=== PATIENT | male | born 1960 | race Caucasian/White ===

== ENCOUNTER → 2020-10-31 | Outpatient (CLI) | payer SELFPAY ==
--- NOTE | 2020-10-31 12:30 | Diagnostic Imaging Report ---
CT cardiac calcium score. Indication: Family history of coronary artery disease. There are no prior studies available for comparison. Routine imaging of the heart was performed. The total Agatston score is 55.5 (please see attached report). The images of the heart showed the heart is at the upper limits of normal in size. There are coronary artery calcifications involving the left main and left anterior descending coronary artery. There is no sign of pericardial effusion. The aorta is not abnormally dilated. There is no obvious mediastinal or hilar adenopathy. The lungs are generally clear. However there is a suggestion of a 5.6 mm nodule involving the right middle lobe (image 57 of 113). This nodule has a generally benign appearance. Even so, unless there are previous CT examinations available to demonstrate that this finding stable, then a followup CT chest exam with contrast would be recommended. The sections through the upper abdomen failed to show any sign of an acute abnormality. The bone windows are unremarkable for fracture or for a destructive lesion. Impression: 1. The total Agatston score is 55.5 (please see attached report). 2. There is no acute cardiopulmonary abnormality identified. 3. The small nodular density in the right middle lobe is most likely a benign process. Additional considerations and recommendations as above. Dictated by: Dictated on workstation # [id number]
== END ==
LOC: RAD FS 09:02
PROVIDERS: ATTEND Family Medicine
DX: E78.00 Pure hypercholesterolemia, unspecified (principal); R91.1 Solitary pulmonary nodule
CPT/HCPCS: 75571

== ENCOUNTER 2021-01-22 21:31 | Emergency (ER) | payer BC, OTHER ==
--- OUTSIDE RECORDS SUMMARY | 2021-01-22 21:35 | XMS REPORT | Encounter Summary ---
Author Author [facility] Organization [facility] Address Unknown Phone Unavailable Care Team Providers Care Director Skills Name Role Phone Oral Newton MD PCP Reason for Visit * Reason Comments Concern For Covid-19 Cough, nausea, fever body a ches x 7 days. has covid Encounter Details Care Team Description Date Type Department Mick Machuca MD [address] [place] [id number] COVID-19 (Primary Dx) 12/31/2020 Emergency [facility] [id number] [place] [address] Social History Date Tobacco Use Types Packs/Day Years Used Never Smoker Smokeless Tobacco: Never Used Comments Alcohol Use Standard Drinks/Week Not Currently 0 (1 standard drink = 0.6 o z pure alcohol) Sex Assigned at Date Recorded Not on file documented as of this encounter Last Filed Vital Signs Reading Time Taken Comments Vital Sign 120/69 12/31/2020 6:01 PM CDT Blood Pressure 64 12/31/2020 2:11 PM CDT Pulse 36.8 C (98.3 F) 12/31/2020 2:11 PM CDT Temperature 18 12/31/2020 2:11 PM CDT Respiratory Rate 96% 12/31/2020 6:03 PM CDT Oxygen Saturation - - Inhaled Oxygen Concentration 83.9 kg (185 lb) 12/31/2020 2:11 PM CDT Weight 182.9 cm (6') 12/31/2020 2:11 PM CDT Height 25.09 12/31/2020 2:11 PM CDT Body Mass Index documented in this encounter Discharge Instructions * Attachments The following attachments cannot be sent through Care Everywhere.* Coronavirus Disease 2019: Caring for Yourself and Others ([place]) documented in this encounter Medications at Time of Discharge Start Date End Date Medication Sig Dispensed Refills aspirin 81 MG chewable Chew 81 mg 0 tablet daily. 12/31/2020 benzonatate (TESSALON) Take 1 30 capsule 0 100 MG capsule capsule (100 mg total) by mouth 3 (three) times a day as needed for cough. 12/31/2020 guaiFENesin (MUCINEX) 600 Take 1 tablet 20 tablet 0 mg Ta12 12 hr tablet (600 mg total) by mouth 2 (two) times a day. hydroCHLOROthiazide Take 25 mg by 0 (HYDRODIURIL) 25 MG mouth every tablet other day. 12/08/2018 lisinopril TAKE ONE 11 (PRINIVIL,ZESTRIL) 20 MG TABLET BY tablet MOUTH TWO TIMES A DAY 12/08/2018 metoprolol succinate TAKE TWO 11 (TOPROL-XL) 25 MG 24 hr TABLETS BY tablet MOUTH TWO TIMES A DAY 12/31/2020 ondansetron (ZOFRAN ODT) Take 1 tablet 20 tablet 0 4 MG disintegrating (4 mg total) tablet by mouth every 8 (eight) hours as needed for nausea. 11/21/2020 rosuvastatin (CRESTOR) 10 Take 10 mg by 0 MG tablet mouth daily. 12/08/2018 ULORIC 80 mg Tab tablet Take 40 mg by 6 mouth daily. documented as of this encounter ED Notes * Mick Machuca MD - 12/31/2020 5:07 PM CDT 12/31/2020 [facility] History Chief Complaint Patient presents with Concern For Covid-19 Cough, nausea, fever body aches x 7 days. has covid Patient is a 60-year-old male who has had viral symptoms for the past 7 days. H is was recently diagnosed with COVID-19. He believes he may have Covid. H e has had cough along with nausea and fevers and chills. He has significant fat igue. He is not vaccinated. He denies any chest pain. Past Medical History: Diagnosis Date Gout Hyperlipidemia Hypertension Past Surgical History: Procedure Laterality Date ARTHROSCOPY, KNEE Right CARPAL TUNNEL RELEASE Bilateral carpul tunnel EYE SURGERY Left left eye REPAIR, KNEE, ACL REPAIR, ROTATOR CUFF, ARTHROSCOPIC Left 03/22/2019 Procedure: LEFT SHOULDER ARTHROSCOPY; Surgeon: Tyson Sawyer MD; Location : [facility] Main OR; Service: Orthopedics; Laterality: Left; ROTATOR CUFF REPAIR,OPEN,WITH BICEPS TENODESIS,SUBACROMIAL SPACE DECOMPRESSI ON,AND DISTAL CLAVICLE EXCISION Left 03/22/2019 Procedure: ROTATOR CUFF REPAIR,OPEN,WITH BICEPS TENODESIS; Surgeon: Tyson mehta MD; Location: [facility] Main OR; Service: Orthopedics; Laterality: Left; SHOULDER SURGERY right Family History Problem Relation Age of Onset Anesthesia problems Neg Hx Malig Hypertension Neg Hx Malig Hyperthermia Neg Hx Pseudochol deficiency Neg Hx Social History Tobacco Use Smoking status: Never Smoker Smokeless tobacco: Never Used Substance Use Topics Alcohol use: Not Currently Drug use: Never Review of Systems Constitutional: Negative. HENT: Negative. Eyes: Negative. Respiratory: Negative. Cardiovascular: Negative. Gastrointestinal: Negative. Genitourinary: Negative. Musculoskeletal: Negative. Neurological: Negative. All other systems reviewed and are negative. Physical Exam BP 120/69 | Pulse 64 | Temp 98.3 F (36.8 C) | Resp 18 | Ht 1.829 m (6') | Wt 83.9 kg (185 lb) | SpO2 96% | BMI 25.09 kg/m Weight Method: Stated O2 Device: None (Room air) Physical Exam Vitals reviewed. Constitutional: Appearance: He is well-developed. HENT: Head: Normocephalic and atraumatic. Right Ear: External ear normal. Left Ear: External ear normal. Eyes: Pupils: Pupils are equal, round, and reactive to light. Cardiovascular: Rate and Rhythm: Normal rate and regular rhythm. Heart sounds: Normal heart sounds. Pulmonary: Effort: Pulmonary effort is normal. Breath sounds: Normal breath sounds. Abdominal: General: Bowel sounds are normal. Palpations: Abdomen is soft. Musculoskeletal: General: Normal range of motion. Cervical back: Normal range of motion and neck supple. Neurological: General: No focal deficit present. Mental Status: He is alert and oriented to person, place, and time. Cranial Nerves: No cranial nerve deficit. Coordination: Coordination normal. ED Course Procedures MDM 5:07 PM-Patient appears well. COVID +. Oxygenation is stable. Will recheck O2 sat and blood pressure. Will get chest x-ray. If stable no indication for admi ssion at this time. Covid return precautions given. 6:21 PM-Patient's vitals remained stable. Blood pressure improved. Oxygenation never dropped below 90 remains well above 90. Chest x-ray unremarkable. Okay for discharge home with symptomatic care and return precautions. Of note cl bell is repeatedly asking for hydroxychloroquine. I explained to patient there was no evidence that this is effective against Covid and in fact it has several side effects that can be dangerous. I explained in depth why I was not prescribing this medication to any COVID patients as it is not currently recommended by the FDA. Patient expresses understanding. Results for orders placed or performed during the hospital encounter of 12/31/20 (from the past 24 hour(s)) COVID PCR - Rapid Specimen: NASOPHARYNGEAL SWAB Result Value Ref Range SARS-CoV-2 PCR Positive (A) Negative XR Chest single view frontal Final Result Normal chest ED Clinical Impression 1. COVID-19 Patient ED Dispo ED Disposition Discharge Mick Machuca MD 12/31/20 1822 Mick Machuca MD 12/31/20 1832 documented in this encounter Plan of Treatment Not on filedocumented as of this encounter Procedures Comments Procedure Name Priority Date/Time Associated Diag nosis XR CHEST SINGLE VIEW STAT 12/31/2020 FRONTAL 5:30 PM CDT PULSE OXIMETRY, STAT 12/31/2020 CONTINUOUS 5:06 PM CDT COVID PCR - RAPID Routine 12/31/2020 2:13 PM CDT documented in this encounter Results * XR Chest single view frontal (12/31/2020 5:30 PM CDT) Specimen Impressions Performed At Normal chest JONATHAN Narrative Performed At Patient: VIJAYA CANSECO Sex#: M #: [id number] Kimmy# : [id number] Location: [facility] ED Ordering Provider: MICK MACHUCA Procedure Requested: [id number] XR CHEST SINGLE VIEW FRONTAL Exam Ordered: 12/31/2020 170 0 Exam Date/Time: 12/31/2020 1730 Begin exam date/time: 12/31/2020 1722 XR CHEST SINGLE VIEW FRONTAL Date: 12/31/2020 5:40 PM History: COVID, cough Findings: Heart and vessels are normal. Lungs a re normally aerated. No pleural fluid or air. Bones and soft tissues normal. Procedure Note Interface, Rad Results In - 12/31/2020 6:14 PM CDT Patient: VIJAYA CANSECO Sex#: M #: 1960 Kimmy#: [id number] Location: [facility] ED HA[facility]- Ordering Provider: MICK MACHUCA Procedure Requested: [id number] XR CHEST SINGLE VIEW FRONTAL Exam Ordered: 12/31/2020 1700 Exam Date/Time: 12/31/2020 1730 Begin exam date/time: 12/31/2020 1722 XR CHEST SINGLE VIEW FRONTAL Date: 12/31/2020 5:40 PM History: COVID, cough Findings: Heart and vessels are normal. Lungs are normally aerated. No pleural fluid or air. Bones and soft tissues normal. IMPRESSION Normal chest Performing Organization Address City/[facility] Code P henrique Number DAWNNASIM * COVID PCR - Rapid (12/31/2020 2:13 PM CDT) SARS-CoV-2 PCR Positive (A)Comment: This Negative Lizandro Ramos's RT-PCR test has been [facility] authorized by the FDA under an Emergency Use Authorization (EUA) for use by authorized laboratories. Specimen NASOPHARYNGEAL SWAB Performing Organization Address City/State/ZIP Code P henrique Number [facility] [address] [place] [address] [facility] [address] [place] [address] documented in this encounter Visit Diagnoses Diagnosis COVID-19 - Primary documented in this encounter Additional Health Concerns Last Indicated Resolved Time Infection Onset Date 12/31/2020 01/21/2021 1:18 AM CDT COVID-19 Confirmed 12/31/2020 documented as of this encounter"
--- OUTSIDE RECORDS SUMMARY | 2021-01-22 21:35 | XMS REPORT | Clinical Summary ---
Author Author [facility] Organization [facility] Address Unknown Phone Unavailable Care Team Providers Care Fagot Heater Name Role Phone Oral Newton MD PCP Allergies No Known Active Allergies Medications End Date Status Medication Sig Dispensed Refills Start Date Active ULORIC 80 mg Tab tablet Take 40 mg by 6 mouth daily. 9 Active lisinopril TAKE ONE (PRINIVIL,ZESTRIL) 20 MG TABLET BY 9 tablet MOUTH TWO TIMES A DAY Active metoprolol succinate TAKE TWO (TOPROL-XL) 25 MG 24 hr TABLETS BY 9 tablet MOUTH TWO TIMES A DAY Active aspirin 81 MG chewable Chew 81 mg 0 tablet daily. Active hydroCHLOROthiazide Take 25 mg by 0 (HYDRODIURIL) 25 MG mouth every tablet other day. Active rosuvastatin (CRESTOR) 10 Take 10 mg by 0 10/29 MG tablet mouth daily. 1 Active benzonatate (TESSALON) Take 1 30 capsule 0 100 MG capsule capsule (100 1 mg total) by mouth 3 (three) times a day as needed for cough. Active ondansetron (ZOFRAN ODT) Take 1 tablet 20 tablet 0 4 MG disintegrating (4 mg total) 1 tablet by mouth every 8 (eight) hours as needed for nausea. Active guaiFENesin (MUCINEX) 600 Take 1 tablet 20 tablet 0 mg Ta12 12 hr tablet (600 mg 1 total) by mouth 2 (two) times a day. 12/31/2020 Discontinued simvastatin (ZOCOR) 20 MG Take 20 mg by 2 11/27 tablet mouth 9 nightly. Active Problems No known active problems Encounters Care Team Description Date Type Specialty Mick Machuca MD COVID-19 (Primary Dx) 12/31/2020 Emergency Emergency Medicine from Last 3 Months Family History Medical History Relation Name Comments Anesthesia problems Neg Hx Malig Hypertension Neg Hx Malig Hyperthermia Neg Hx Pseudochol deficiency Neg Hx Social History Date Tobacco Use Types Packs/Day Years Used Never Smoker Smokeless Tobacco: Never Used Comments Alcohol Use Standard Drinks/Week Not Currently 0 (1 standard drink = 0.6 o z pure alcohol) Sex Assigned at Date Recorded Not on file Last Filed Vital Signs Reading Time Taken [...] 12/31/2020 2:11 PM CDT Body Mass Index Plan of Treatment Health Maintenance Due Date Last Done Comments Hepatitis C Screen 1960 Td/Tdap# 1960 COVID-19 Vaccine (1) 1973 Colorectal Screening via 2011 Colonoscopy Zoster Vaccine# (1 of 2) 2011 Influenza Vaccine (#1) 2021 Pneumococcal Vaccine: Aged Out No longer eligib le based on patient's age to Pediatrics (0 to 5 Years) complete this topic and At-Risk Patients (6 to 64 Years) Implants Device Identifier Shelf Expiration Date Model / Serial / L ot Implanted Type Area Manufactur er 09/27/2019 [id number] / / [id number] Implant Speedbridge System Non-Tissue Left: Shoulder ART [employer] Bio-[employer]posite Swivelock Implant [id number] - [id number] Implanted: Qty: 1 on 03/22/2019 by yTson Sawyer MD at [facility] 08/28/2023 [id number] / / [id number] Implant Proximal Tenodesis Implant Non-Tissue Left: Yuriy katarzyna ARTHREX System [id number] - [id number] Implant Implanted: Qty: 1 on 03/22/2019 by Tyson Sawyer MD at [facility] Wire Eye Procedures Comments Procedure Name Priority Date/Time Associated Diag nosis XR CHEST SINGLE VIEW STAT 12/31/2020 FRONTAL 5:30 PM CDT PULSE OXIMETRY, STAT 12/31/2020 CONTINUOUS 5:06 PM CDT COVID PCR - RAPID Routine 12/31/2020 2:13 PM CDT from Last 3 Months Results * XR Chest single view frontal (12/31/2020 5:30 PM CDT) Specimen Impressions Performed At [facility] Narrative Performed At Patient: VIJAYA CANSECO NASIM Sex#: M #: [id number] Kimmy# : [id number] Location: [facility] ED [facility] Ordering Provider: MICK MACHUCA Procedure Requested: [id number] XR CHEST SINGLE VIEW FRONTAL Exam Ordered: [...] VIJAYA CANSECO Sex#: M #: 1960 Kimmy#: [id number] Location: [facility] ED [facility]-02 Ordering Provider: MICK MACHUCA Procedure Requested: [id number] XR CHEST SINGLE VIEW FRONTAL Exam Ordered: 12/31/2020 1700 Exam Date/Time: 12/31/2020 1730 Begin exam date/time: 12/31/2020 1722 XR CHEST SINGLE VIEW FRONTAL Date: 12/31/2020 5:40 PM History: COVID, cough Findings: Heart and vessels are normal. Lungs are normally aerated. No pleural fluid or air. Bones and soft tissues normal. IMPRESSION Normal chest Performing Organization Address City/State/ZIP Code P henrique Number JONATHAN * COVID PCR - Rapid (12/31/2020 2:13 PM CDT) SARS-CoV-2 PCR Positive (A)Comment: This Negative Lizandro Jiménez's RT-PCR test has been [facility] authorized by the FDA under an Emergency Use Authorization (EUA) for use by authorized laboratories. Specimen NASOPHARYNGEAL SWAB Performing Organization Address City/State/ZIP Code P henrique Number [facility] [id number] [place] [address] [facility] [id number] [place] [address] from Last 3 Months Insurance Type Payer Benefit Subscriber ID Effective Phone Address Plan / Dates Group [facility] [id number] 20 15- PREFERRED Present CARE BLUE Advance Directives For more information, please contact: [phone] Patient Qm Consultant Explanation Type Date Recorded Health Care Directive
--- NOTE | 2021-01-22 21:45 | ED General ---
General Stated Complaint: ALLERGIC REACTION History of Present Illness Date Seen by Provider: Jan 22, 2021 Time Seen by Provider: 21:40 Initial Comments 60-year-old male presents following multiple bee stings. Around 730 patient was stung anywhere from 8-12 times by what he believes bumble bees. Around 9:00 patient was having some wheezing and shortness of breath. Patient's went to her brothers and got EpiPen and gave him epi injection. He also got 50 mg of Benadryl. Patient presents now because he is just little shaky with breathing is improved. Patient has no known allergies to bees. He denies any nausea vomiting fever chills cough or diarrhea. Allergies and Home Medications Allergies Coded Allergies: No Known Drug Allergies (Unverified , 01/22/21) Patient Home Medication List Home Medication List Reviewed: Yes Review of Systems Review of Systems Constitutional: see HPI EENTM: no symptoms reported Respiratory: No cough; short of breath, wheezing Cardiovascular: No chest pain, No palpitations Gastrointestinal: No diarrhea, No nausea, No vomiting Musculoskeletal: no symptoms reported Skin: see HPI Psychiatric/Neurological: No Symptoms Reported Hematologic/Lymphatic: No Symptoms Reported Immunological/Allergic: no symptoms reported Physical Exam Vital Signs Vital Signs - First Documented 01/22/21 21:33 Temp 36.5 Pulse 86 Resp 18 B/P (MAP) 116/63 (80) Pulse Ox 97 O2 Delivery Room Air Capillary Refill : Height, Weight, BMI Height: '" Weight: lbs. oz. 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 Norm as Tested Skin: Normal Color, Warm/Dry, Other (Are multiple areas consistent with bee stings on posterior scalp/neck, hands, feet left ankle.) Progress/Results/Core Measures Suspected Sepsis SIRS Temperature: Pulse: Respiratory Rate: Blood Pressure / Mean: Results/Orders My Orders Orders - NATY UMANA DO Ns Iv 1000 Ml (Sodium Chloride 0.9%) (01/22/21 21:48) Famotidine Injection (Pepcid Injection) (01/22/21 21:48) Methylprednisolone Sod Succ (Solu-Medrol (01/22/21 21:48) Ed Iv/Invasive Line Start (01/22/21 22:13) Vital Signs/I&O 01/22/21 21:33 Temp 36.5 Pulse 86 Resp 18 B/P (MAP) 116/63 (80) Pulse Ox 97 O2 Delivery Room Air Capillary Refill : Progress Note : Progress Note Patient with no further symptoms throughout his stay in the ER. Patient was stable throughout his stay and feeling much better. Patient to be discharged home, he should return the ER as needed Departure Impression Primary Impression: Bee sting reaction Qualified Codes: T63.441A - Toxic effect of venom of bees, accidental (unintentional), initial encounter Disposition: 01 HOME, SELF-CARE Condition: Stable Departure-Patient Inst. Referrals: ANDI MCA MD (PCP/Family) Primary Care Physician Patient Instructions: Insect Bites and Stings, Anaphylaxis (DC) Add. Discharge Instructions: Return to the ER as needed Follow-up with your primary care provider in 1 week for continuation of care NATY UMANA DO Jan 22, 2021 21:44
[2021-01-22] MEDS ORDERED: NS IV 1000 ML 1,000 ML IV STA (21:48)
[2021-01-22] MEDS ORDERED: methylPREDNISolone 125 MG (Solu-MEDROL) VIAL IV STA (21:48)
[2021-01-22] MEDS ORDERED: FAMOTIDINE 20MG/2ML IV (PEPCID) IV STA (21:48)
[2021-01-22 23:38] VITALS: BP 102/57
== END 2021-01-22 23:41 | disposition home or self-care (01) ==
LOC: EDUNIT# 21:31 → ER FS 21:32
DX: T63.441A Toxic effect of venom of bees, accidental (unintentional), initial encounter (principal)